=== PATIENT | female | born 1960 | race Caucasian/White ===

== ENCOUNTER 2016-08-30 19:21 | Emergency (ER) | payer OTHER ==
[~2016-08-30] VITALS: Ht 162.6 cm; Wt 90.0 kg
[2016-08-30 20:18] LABS: HEMATOCRIT 42.5 % (37.0-47.0); HEMOGLOBIN 14.1 g/dl (12.0-16.0); IMMATURE GRANULOCYTES 0.2 % (0.0-1.0); MEAN CELL VOLUME 89.5 fL CALC (80.0-100.0); MEAN CORPUSCULAR HGB 29.7 pG CALC (26.0-32.0); MEAN CORPUSCULAR HGB CONC 33.2 g/L CALC (32.0-36.0); NEUT# 4.35 thou/uL (2.00-7.15); RED BLOOD COUNT 4.75 mill/uL (4.20-5.60); RED CELL DISTRI WIDTH 14.4 % (11.5-15.5)
[2016-08-30 20:24] LABS: ALBUMIN 3.5 g/dL (3.2-5.0); ALKALINE PHOSPHATASE 95 u/l (38-126); ANION GAP 12 (6-22 (CALC)); BILIRUBIN, TOTAL 0.3 mg/dL (0.0-1.4); BUN 13 mg/dL (7-17); BUN/CREATININE RATIO 20 (12-20 (CALC)); CALCIUM 9.3 mg/dL (8.4-10.2); CARBON DIOXIDE 27 mmol/l (22-30); CHLORIDE 107 mmol/l (95-108); CREATININE 0.6 mg/dL (0.5-1.0); GFR > 60 ML/MIN (>=60 (CALC)); GFR FOR AFR.AMER. > 60 ML/MIN (>=60 (CALC)); GLUCOSE 128 mg/dL (65-105); POTASSIUM 3.7 mmol/l (3.5-5.1); SGOT/AST 19 u/l (14-36); SGPT/ALT 27 u/l (9-52); SODIUM 142 mmol/l (137-146); TOTAL PROTEIN 6.6 g/dL (6.3-8.2)
[2016-08-30 20:35] LABS: MYOGLOBIN 24 ng/mL (0 - 62)
[2016-08-30] MEDS ORDERED: PREDNISONE10 MG PO (20:53)
[2016-08-30] MEDS ORDERED: VENTOLIN HFA IN (20:53)
[2016-08-30] MEDS ORDERED: ZITHROMAX250 MG PO (20:53)
[2016-08-30 21:01] VITALS: BP 109/72
== END 2016-08-30 21:11 | disposition home or self-care (01) | DRG 948 ==
LOC: ED 19:21
PROVIDERS: Emergency Medicine
DX: R60.0 Localized edema (principal); F17.200 Nicotine dependence, unspecified, uncomplicated